=== PATIENT | female | born 1965 | race Caucasian/White ===

== ENCOUNTER 2017-07-29 05:23 | Observation (INO) | payer BC ==
[~2017-07-29] VITALS: Ht 170.2 cm; Wt 109.3 kg
[2017-07-29] VITALS (7 sets, daily range): BP systolic 83–132; BP diastolic 56–88
--- NOTE | ~2017-07-29 | O ---
[facility] [place] [address] OPERATIVE REPORT Name: LAINEJF Chilel Room #: 401-I [facility]..#: [id number] Admission: 07/29/17 Attend Phys: Brock Gorman MD Discharge: Date of : 61 Report #: [id number] THIS REPORT FOR: //name// CC: Brock Patel DATE OF SERVICE: 07/29/2017 PREOPERATIVE DIAGNOSIS: Right ankle osteoarthritis. POSTOPERATIVE DIAGNOSIS: Right ankle osteoarthritis. PROCEDURE: Right ankle total ankle arthroplasty. SURGEON: Brock Gorman M.D. ANESTHESIA: General. ESTIMATED BLOOD LOSS: 15 mL. GIFT SHOP CLERK: CYNTHIA Turner critical for positioning and maintenance of alignment. TOURNIQUET TIME: 120 minutes. DESCRIPTION OF PROCEDURE: The patient brought to the operating room where she was placed under general anesthesia. Once under adequate general anesthesia, her right lower extremity was prepped and draped in sterile manner. The extremity was elevated, exsanguinated and a tourniquet placed to 300 mmHg. An anterior incision overlying the ankle joint was then made approximately 20 cm in length. This was dissected down through the soft tissue to the interval between the extensor hallucis longus and the anterior tibialis. This interval was then opened exposing the neurovascular bundle, which was then retracted laterally. The anterior ankle joint was then exposed and a 15 blade was used to open the joint and then released any soft tissue surrounding it, exposing the joint completely. The guidepin for the external tibial alignment guide was then placed in the tibial tubercle. The axial, sagittal and coronal accesses were then verified under fluoroscopy to be in a satisfactory position utilizing the angling from the [employer]. The distal tibial cut was then made and once complete, the distal portion of the tibia was removed from the joint itself with a rongeur and osteotomes as well as curette. Once removed, the component to cut the talar surface was then placed and the dorsal talar surface cut was then made. Subsequent to this utilizing the datum, the anterior and posterior talar cuts were made. The side chamfer cuts were then made with reciprocating saws. All this bone was then subsequently removed and the reamer for the flange on the talar component was then placed. The wound was then [address] [address] OPERATIVE REPORT Name: LAINEJF Room #: 401-I [facility] Ilana Marques#: [id number] Admission: 07/29/17 Attend Phys: Brock Gorman MD Discharge: Date of : 61 Report #: [id number] irrigated copiously and the talar component was then placed. This was a extra small talar component. Trials for the tibial surface, which was measured as 35 mm were then utilized and placed with the postholes for the tibial component then reamed for and cleared of any bony impingement. Tibial component was then placed and subsequently, a 6 mm and a 7 mm trials were trialed, which did appear to fit both of them. The 7 appeared to be more stable; therefore, a 7 mm implant was placed. The final tibiotalar and polyethylene components were then in place from the [employer]. The ankle was put through range of motion and did appear to be stable. The anterior portions of the peg holes were then filled with bone graft and subsequently, a 4 mm cannulated screw was placed in the medial malleolus under fluoroscopic guidance through a small stab incision. Once complete, the wound was irrigated copiously and closed with 0 Vicryl in the deep layers, 2-0 Vicryl in subcutaneous tissues and rekha were used for the skin. The wounds were dressed with Xeroform, 4 x 4s, and a sterile soft compressive dressing with a short leg cast was placed. Tourniquet was let down at 120 minutes. Toes were pink and warm with good capillary refill. There were no complications from the procedure. The patient tolerated the procedure well and went to the recovery room without incident. <ELECTRONICALLY SIGNED> By: Brock Gorman MD 07/30/17 0813 [id number] Brock Gorman MD /nt
--- NOTE | ~2017-07-29 | EKG ---
[address] [place] [address] ELECTROCARDIOGRAM REPORT Name: JF JANG Getachew Room #: [address] [place] [address]#: [id number] Admission: 07/29/17 Attend Phys: Brock Gorman MD Discharge: Date of : 61 Report #: [id number] THIS REPORT FOR: //name// [facility] Test Date: 2017-07-29 Test Time: 06:49:10 Pat Name: JF JANG Department: Room: [facility] Gender: F High Risk Case Manager: BENI : 1965 Requested By: Bird Santamaria Order Number: [id number] MD: Mo Shanks Measurements Intervals [place] Rate: 80 P: 55 [place]: 139 QRS: 42 QRSD: 97 T: 13 QT: 370 QTc: 427 Interpretive Statements Sinus rhythm Borderline T wave abnormalities No previous ECG available for comparison Electronically Signed On 07-29-2017 7:50:19 SECTION HOUSEKEEPER by Mo Shanks [email or web address] <ELECTRONICALLY SIGNED> By: Mo Shanks MD, [facility] 07/29/17 0750 [id number] [id number] Mo Shanks MD, FACC /EPI
[~2017-07-29 05:23] MED LIST: CELEXA20 MG PO
[2017-07-30 01:56] VITALS: BP 110/66
[2017-07-30 04:25] VITALS: BP 118/61
[2017-07-30 05:33] LABS: HEMATOCRIT 35.4 % (37.0-47.0); HEMOGLOBIN 11.8 gm/dL (12.0-15.0)
[2017-07-30 05:44] LABS: POTASSIUM 4.2 mmol/L (3.5-5.1)
[2017-07-30] MEDS ORDERED: PERCOCET 7.5-31 EACH PO (08:09)
[2017-07-30] MEDS ORDERED: ASA5UEC PO (08:09)
[2017-07-30 10:29] VITALS: BP 118/61
== END 2017-07-30 11:00 | disposition home health service (06) ==
LOC: TBA 05:23 → OR 05:23 → 4N 10:05 → OR 10:20 → ENTRNSPT 07-30 10:51 → 4N 07-30 11:00
PROVIDERS: Orthopaedic Surgery Foot and Ankle Surgery
DX: M19.071 Primary osteoarthritis, right ankle and foot (principal)